=== PATIENT | male | born 1950 | race Caucasian/White ===

== ENCOUNTER → 2016-12-16 | Outpatient (CLI) | payer MEDICARE, BC ==
[~2016-12-16] MED LIST: /METO25TAB PO; ACET120S PO; ASPI1TAB PO; BACT800T5 PO; BISAC5TA PO; CARAFATE PO; COUM1TAB17 PO; COUM2.5T17 PO; CYMB1CAP4 PO; DICY10CA2 PO; FLEXERIL PO; ISOVUE-370 76% 100ML VIAL (Q9967) As Ordered ONE; METO25TAB PO; MULT1TAB8 PO; OMEP20CA3 PO; PERC5TAB12 PO; PERCOCET PO; SENO8.6T9 PO; SUCRPOW PO; TYLE325T5 PO; TYLENOL W/CODEINE PO
--- NOTE | 2016-12-16 16:32 | REP ---
CT of the chest with IV contrast for evaluation of the ascending thoracic aorta: Comparison is 10/07/2012. The ascending thoracic aorta is dilated measuring up to 4.7 cm at the level of the pulmonary artery trunk and right central pulmonary artery. On the comparison study at this same level the ascending thoracic aorta measures 4.6 centimeters. The aortic isthmus measures 3.1 cm in diameter and the proximal descending thoracic aorta measures 2.8 cm in diameter. At the diaphragmatic hiatus the distal descending thoracic aorta measures two point centimeters in diameter. There is no evidence of dissection or intimal flap. The lung rosado are clear except for chronic parenchymal scarring in the deep sulci of both right and left lower lobes, unchanged. There is no mediastinal or hilar adenopathy. There is no axillary adenopathy. Cardiac size is normal. There is no pericardial effusion. The visualized upper abdominal contents again demonstrate enhancing hyperdense lesions in the liver and spleen, unchanged in size, compatible with hemangiomas. Impression: The ascending thoracic aorta is dilated. The remainder of the thoracic aorta is normal size. 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 There is focal chronic parenchymal scarring in the posterior sulcus of the right lung and posterior sulcus of the left lung, unchanged. Signed by Valdemar Root MD 12/16/2016 04:24 P
== END ==
LOC: M RAD 09:44
PROVIDERS: ATTEND Internal Medicine Cardiovascular Disease
DX: I71.4 Abdominal aortic aneurysm, without rupture (principal); D18.09 Hemangioma of other sites
CPT/HCPCS: 71275; Q9967

== ENCOUNTER 2018-12-28 14:12 | Emergency (ER) | payer MEDICARE, BC ==
[~2018-12-28] VITALS: Ht 177.8 cm; Wt 74.9 kg
[~2018-12-28 14:12] MED LIST changes: -/METO25TAB PO; +ASPI81TA26 PO; -ISOVUE-370 76% 100ML VIAL (Q9967) As Ordered ONE; +METO1TAB63 PO; +METO1TAB87 PO; -METO25TAB PO; +OXYC1TAB23 PO; -PERCOCET PO
[2018-12-28 15:16] LABS: BASO % 0.4 % (0.0-1.0); EOS # 0.1 10^3/uL (0.0-0.50); EOS % 1.4 % (0.0-3.0); HEMATOCRIT 41.5 % (42.0-52.0); HEMOGLOBIN 14.5 g/dl (13.5-17.5); LYMPH # 0.8 10^3/uL (1.5-4.5); LYMPH % 11.7 % (24.0-44.0); MEAN CORPUSCULAR HEMOGLOBIN 32.8 pg (27.0-33.0); MEAN CORPUSCULAR HGB CONC 34.9 g/dl (32.0-36.5); MEAN CORPUSCULAR VOLUME 93.9 fl (80.0-96.0); MONO # 0.6 10^3/uL (0.0-0.8); MONO % 8.6 % (0.0-5.0); NEUTROPHILS # 5.4 10^3/uL (1.8-7.7); NEUTROPHILS % 77.6 % (36.0-66.0); PLATELET COUNT, AUTOMATED 170 10^3/uL (150-450); RED BLOOD COUNT 4.42 10^6/uL (4.30-6.10); WHITE BLOOD COUNT 6.9 10^3/uL (4.0-10.0)
--- NOTE | 2018-12-28 15:25 | REP ---
REASON: Chest pain. COMPARISON: 05/01/2015 FINDINGS: The technique utilized in obtaining the radiograph has magnified the cardiac silhouette and accentuated the interstitial markings. The superior mediastinal structures are midline. The cardiac silhouette is unremarkable in size, shape, and position. The diaphragmatic surfaces of the lungs are regular, and the costophrenic angles are clear. The pulmonary rosado are clear. The imaged osseous structures are intact. IMPRESSION: There is no acute cardiopulmonary disease. Electronically Signed by Seth Lynn DO 12/29/2018 03:20 P
[2018-12-28 15:48] LABS: BLOOD UREA NITROGEN 13 MG/DL (7-18); CALCIUM LEVEL 8.9 MG/DL (8.8-10.2); CARBON DIOXIDE LEVEL 28 MEQ/L (21-32); CHLORIDE LEVEL 108 MEQ/L (98-107); CK-MB VALUE MASS < 1.0 NG/ML (<3.6); CPK CREATINE PHOSPHOKINASE 41 U/L (39-308); CREATININE FOR GFR 1.07 MG/DL (0.70-1.30); GLOMERULAR FILTRATION RATE > 60.0 (>49); GLUCOSE, FASTING 88 MG/DL (70-100); MB/CK RELATIVE INDEX 2.44 (< OR =4); POTASSIUM SERUM 4.2 MEQ/L (3.5-5.1); SODIUM LEVEL 143 MEQ/L (136-145); TROPONIN I < 0.02 NG/ML (< 0.10)
[2018-12-28 16:46] VITALS: BP 130/79
--- NOTE | 2018-12-28 18:04 | ECGEPIP ---
[facility] - ED Test Date: 2018-12-28 Pat Name: JESSICA LASSITER Department: Room: - Gender: Male Per Diem Clerk: ct : 1950 Requested By: Shania Bruce Order Number: [id number] Reading MD: Shania Bruce Measurements Intervals [place] Rate: 82 P: 53 TX: 197 QRS: -65 QRSD: 157 T: 25 QT: 396 QTc: 463 Interpretive Statements SINUS RHYTHM WITH FREQUENT VENTRICULAR PREMATURE COMPLEXES RIGHT BUNDLE BRANCH BLOCK LEFT ANTERIOR FASCICULAR BLOCK INCREASED RATE/ECTOPY 05/01/15 Electronically Signed on 12-28-2018 18:04:39 EDT by Shania Bruce
== END 2018-12-28 16:48 | disposition home or self-care (01) ==
LOC: M ED 14:12
DX: R09.1 Pleurisy (principal); E11.9 Type 2 diabetes mellitus without complications; I10 Essential (primary) hypertension; I71.9 Aortic aneurysm of unspecified site, without rupture; E78.5 Hyperlipidemia, unspecified; Z88.0 Allergy status to penicillin; Z88.5 Allergy status to narcotic agent; Z79.82 Long term (current) use of aspirin

== ENCOUNTER → 2019-06-12 | Outpatient (REF) | payer MEDICARE, BC ==
[2019-06-12 15:33] LABS: INR 1.33; PROTHROMBIN TIME 16.2 SECONDS (11.8-14.0)
== END ==
LOC: M SHH 14:01
PROVIDERS: ATTEND Internal Medicine Cardiovascular Disease
DX: I48.91 Unspecified atrial fibrillation (principal)

== ENCOUNTER → 2019-06-14 | Outpatient (REF) | payer MEDICARE, BC ==
[2019-06-14 13:01] LABS: INR 1.15; PROTHROMBIN TIME 14.4 SECONDS (11.8-14.0)
== END ==
LOC: M SHH 12:16
PROVIDERS: ATTEND Internal Medicine Cardiovascular Disease
DX: I48.91 Unspecified atrial fibrillation (principal)

== ENCOUNTER → 2019-06-16 | Outpatient (REF) | payer MEDICARE, BC ==
[2019-06-16 12:04] LABS: INR 1.2
== END ==
LOC: M SHH 11:05
PROVIDERS: ATTEND Internal Medicine Cardiovascular Disease
DX: I48.91 Unspecified atrial fibrillation (principal)

== ENCOUNTER → 2019-06-27 | Outpatient (REF) | payer MEDICARE, BC ==
[2019-06-27 12:09] LABS: INR 3.5; PROTHROMBIN TIME 35.1 SECONDS (11.8-14.0)
== END ==
LOC: M SHH 11:36
PROVIDERS: ATTEND Internal Medicine Cardiovascular Disease
DX: I48.91 Unspecified atrial fibrillation (principal)

== ENCOUNTER → 2019-06-30 | Outpatient (REF) | payer MEDICARE, BC ==
[2019-06-30 14:29] LABS: INR 3.3; PROTHROMBIN TIME 33.5 SECONDS (11.8-14.0)
== END ==
LOC: M SHH 13:54
PROVIDERS: ATTEND Internal Medicine Cardiovascular Disease
DX: I48.91 Unspecified atrial fibrillation (principal)

== ENCOUNTER → 2019-07-04 | Outpatient (REF) | payer MEDICARE, BC ==
[2019-07-04 14:51] LABS: INR 2.22; PROTHROMBIN TIME 24.4 SECONDS (11.8-14.0)
== END ==
LOC: M SHH 14:27
PROVIDERS: ATTEND Internal Medicine Cardiovascular Disease
DX: I48.91 Unspecified atrial fibrillation (principal)

== ENCOUNTER → 2019-07-07 | Outpatient (REF) | payer MEDICARE, BC ==
[2019-07-07 14:22] LABS: INR 1.99; PROTHROMBIN TIME 22.4 SECONDS (11.8-14.0)
== END ==
LOC: M SHH 13:33
PROVIDERS: ATTEND Internal Medicine Cardiovascular Disease
DX: I48.91 Unspecified atrial fibrillation (principal)

== ENCOUNTER → 2019-07-11 | Outpatient (REF) | payer MEDICARE, BC ==
[2019-07-11 12:02] LABS: INR 2.33; PROTHROMBIN TIME 25.4 SECONDS (11.8-14.0)
== END ==
LOC: M SHH 11:34
PROVIDERS: ATTEND Internal Medicine Cardiovascular Disease
DX: I48.91 Unspecified atrial fibrillation (principal)

== ENCOUNTER → 2019-07-15 | Outpatient (REF) | payer MEDICARE, BC ==
[2019-07-15 11:54] LABS: INR 2.18; PROTHROMBIN TIME 24.1 SECONDS (11.8-14.0)
== END ==
LOC: M SHH 11:03
PROVIDERS: ATTEND Internal Medicine Cardiovascular Disease
DX: I48.91 Unspecified atrial fibrillation (principal)

== ENCOUNTER 2019-12-17 06:48 | Emergency (ER) | payer MEDICARE, BC ==
[~2019-12-17 06:48] MED LIST changes: -ACET120S PO; +ACET125EL PO
[2020-02-01 13:37] LABS: INR 1.84; PARTIAL THROMBOPLASTIN TIME 39.3 SECONDS (25.0-38.4); PROTHROMBIN TIME 21.7 SECONDS (11.8-14.0)
[2020-02-01 17:59] LABS: BASO % 0.6 % (0.0-1.0); EOS # 0.1 10^3/uL (0.0-0.5); EOS % 2.3 % (0.0-3.0); HEMATOCRIT 41.4 % (42.0-52.0); HEMOGLOBIN 14.1 g/dl (13.5-17.5); LYMPH # 1.1 10^3/uL (1.5-5.0); LYMPH % 21.1 % (24.0-44.0); MEAN CORPUSCULAR HEMOGLOBIN 32.6 pg (27.0-33.0); MEAN CORPUSCULAR HGB CONC 34.1 g/dl (32.0-36.5); MEAN CORPUSCULAR VOLUME 95.6 fl (80.0-96.0); MONO # 0.6 10^3/uL (0.0-0.8); MONO % 10.9 % (0.0-5.0); NEUTROPHILS # 3.4 10^3/uL (1.5-8.5); NEUTROPHILS % 64.5 % (36.0-66.0); PLATELET COUNT, AUTOMATED 157 10^3/uL (150-450); RED BLOOD COUNT 4.33 10^6/uL (4.30-6.10); WHITE BLOOD COUNT 5.3 10^3/uL (4.0-10.0)
[2020-02-28 16:12] LABS: CALCIUM LEVEL 9.2 MG/DL (8.8-10.2); CREATININE FOR GFR 1.31 MG/DL (0.70-1.30); GLOMERULAR FILTRATION RATE 57.6 (>49); POTASSIUM SERUM 4.1 MEQ/L (3.5-5.1)
== END 2019-12-17 09:45 | disposition home or self-care (01) ==
LOC: M ED 06:48
DX: K64.8 Other hemorrhoids (principal); I51.9 Heart disease, unspecified; I10 Essential (primary) hypertension; K58.9 Irritable bowel syndrome, unspecified; H40.9 Unspecified glaucoma; I49.9 Cardiac arrhythmia, unspecified; Z87.19 Personal history of other diseases of the digestive system; Z86.010 Personal history of colon polyps; Z85.038 Personal history of other malignant neoplasm of large intestine; Z86.718 Personal history of other venous thrombosis and embolism; Z95.0 Presence of cardiac pacemaker; Z86.79 Personal history of other diseases of the circulatory system; Z79.01 Long term (current) use of anticoagulants; Z79.899 Other long term (current) drug therapy; Z88.0 Allergy status to penicillin

== ENCOUNTER 2020-05-06 20:19 | Emergency (ER) | payer MEDICARE, BC ==
[~2020-05-06] VITALS: Ht 177.8 cm; Wt 73.3 kg
[2020-05-06] MEDS ORDERED: WARF-20 (20:31)
[2020-05-06] MEDS ORDERED: SERT25TA21 (20:31)
[2020-05-06] MEDS ORDERED: METO1TAB87 (20:31)
[2020-05-06] MEDS ORDERED: DOK1CAP7 (20:31)
[2020-05-06] MEDS ORDERED: WARF4TAB51 (20:31)
[2020-05-06 21:56] LABS: HEMATOCRIT 39.5 % (42.0-52.0); HEMOGLOBIN 13.3 g/dl (13.5-17.5); MEAN CORPUSCULAR HEMOGLOBIN 31.3 pg (27.0-33.0); MEAN CORPUSCULAR HGB CONC 33.7 g/dl (32.0-36.5); MEAN CORPUSCULAR VOLUME 92.9 fl (80.0-96.0); PLATELET COUNT, AUTOMATED 166 10^3/uL (150-450); RED BLOOD COUNT 4.25 10^6/uL (4.30-6.10); WHITE BLOOD COUNT 5.3 10^3/uL (4.0-10.0)
[2020-05-06 22:09] LABS: INR 1.92; PROTHROMBIN TIME 22.4 SECONDS (12.5-14.3)
[2020-05-06 23:10] VITALS: BP 114/72
== END 2020-05-06 23:11 | disposition home or self-care (01) ==
LOC: M ED 20:19
DX: K64.8 Other hemorrhoids (principal); K64.9 Unspecified hemorrhoids; I48.91 Unspecified atrial fibrillation; K57.92 Diverticulitis of intestine, part unspecified, without perforation or abscess without bleeding; Z86.718 Personal history of other venous thrombosis and embolism; Z79.01 Long term (current) use of anticoagulants; Z79.899 Other long term (current) drug therapy; Z88.0 Allergy status to penicillin; Z88.5 Allergy status to narcotic agent

== ENCOUNTER → 2020-06-08 | Outpatient (CLI) | payer MEDICARE, BC ==
[~2020-06-08] MED LIST changes: +DOK1CAP7; +METO1TAB87; +METO37.5 PO; +SERT25TA21; +VITMTA PO; +WARF-20; +WARF4TAB51; +WARF4TAB51 PO
== END ==
LOC: M LABSMTC 09:30
PROVIDERS: ATTEND Anesthesiology
DX: Z01.812 Encounter for preprocedural laboratory examination (principal); Z20.822 Contact with and (suspected) exposure to COVID-19

== ENCOUNTER → 2020-09-07 | Outpatient (CLI) | payer MEDICARE, BC ==
[~2020-09-07] MED LIST changes: -DOK1CAP7; +DOK1CAP7 PO
== END ==
LOC: M LABSMTC 10:08
PROVIDERS: ATTEND Anesthesiology
DX: Z01.812 Encounter for preprocedural laboratory examination (principal); Z20.822 Contact with and (suspected) exposure to COVID-19

== ENCOUNTER 2020-09-12 11:10 | Day surgery (SDC) | payer MEDICARE, BC ==
[~2020-09-12] VITALS: Ht 180.3 cm; Wt 72.9 kg
[~2020-09-12 11:10] MED LIST changes: +LIDOCAINE 2% 100MG/5ML SDV (FOR ANES.) As Ordered ONE; +NS 1,000 ML IV ONE; +propofoL 200 MG/20 ML VIAL As Ordered ONE
[2020-09-12] MEDS ORDERED: ceFAZolin SOD 1 GM in D5W MINI-BAG PLUS 50 ML IV ONE (12:00)
--- NOTE | 2020-09-12 13:51 | ROOR ---
Patient Name: Nguyễn Hernandez Procedure Date: 09/12/2020 1:19 PM Date of : 1950 Age: 69 Room: [facility] Gender: Male Note Status: Finalized Procedure: Colonoscopy Indications: Rectal bleeding Providers: Timothy Das Jr, MD Referring MD: KALEY GAR DO Requesting Provider: Medicines: Propofol per Anesthesia Complications: No immediate complications. Procedure: Pre-Anesthesia Assessment: - Prior to the procedure, a History and Physical was performed, and patient medications and allergies were reviewed. The patient is competent. The risks and benefits of the procedure and the sedation options and risks were discussed with the patient. All questions were answered and informed consent was obtained. Patient identification and proposed procedure were verified by the physician and the nurse in the pre-procedure area and in the procedure room. Mental Status Examination: alert and oriented. Airway Examination: normal oropharyngeal airway and neck mobility. Respiratory Examination: clear to auscultation. CV Examination: normal. ASA Grade Assessment: II - A patient with mild systemic disease. After reviewing the risks and benefits, the patient was deemed in satisfactory condition to undergo the procedure. The anesthesia plan was to use moderate sedation / analgesia (conscious sedation). Immediately prior to administration of medications, the patient was re-assessed for adequacy to receive sedatives. The heart rate, respiratory rate, oxygen saturations, blood pressure, adequacy of pulmonary ventilation, and response to care were monitored throughout the procedure. The physical status of the patient was re-assessed after the procedure. The Colonoscope was introduced through the anus and advanced to the cecum, identified by appendiceal orifice and ileocecal valve. The colonoscopy was performed without difficulty. The patient tolerated the procedure well. The quality of the bowel preparation was adequate. Findings: Five sessile polyps were found in the sigmoid colon, descending colon and ascending colon. The polyps were small in size. These polyps were removed with a hot snare. Resection was complete, but the polyp tissue was only partially retrieved. A medium polyp was found in the rectum. The polyp was pedunculated. The polyp was removed with a hot snare. Resection and retrieval were complete. Impression: - Five small polyps in the sigmoid colon, in the descending colon and in the ascending colon, removed with a hot snare. Complete resection. Partial retrieval. - One medium polyp in the rectum, removed with a hot snare. Resected and retrieved. Recommendation: - Discharge patient to home (ambulatory). - Repeat colonoscopy date to be determined after pending pathology results are reviewed for surveillance based on pathology results. Procedure Code(s): --- Professional --- 08981, Colonoscopy, flexible; with removal of tumor(s), polyp(s), or other lesion(s) by snare technique Diagnosis Code(s): --- Professional --- K63.5, Polyp of colon K62.1, Rectal polyp K62.5, Hemorrhage of anus and rectum CPT copyright 2019 [employer]. All rights reserved. The codes documented in this report are preliminary and upon jewelry estimator review may be revised to meet current compliance requirements. Timothy Das MD Timothy Das Jr, MD 09/12/2020 1:50:44 PM Electronically signed by Timothy Das Jr, MD Number of Addenda: 0 Note Initiated On: 09/12/2020 1:19 PM Estimated Blood Loss: Estimated blood loss: none.
[2020-09-12 14:25] VITALS: BP 101/74
== END 2020-09-12 14:40 | disposition home or self-care (01) ==
LOC: M OPP 11:10
PROVIDERS: ATTEND Surgery
DX: K62.5 Hemorrhage of anus and rectum (principal); D12.6 Benign neoplasm of colon, unspecified; I10 Essential (primary) hypertension; M19.90 Unspecified osteoarthritis, unspecified site; F41.9 Anxiety disorder, unspecified; F32.9 Major depressive disorder, single episode, unspecified; J44.9 Chronic obstructive pulmonary disease, unspecified; F17.220 Nicotine dependence, chewing tobacco, uncomplicated; Z95.0 Presence of cardiac pacemaker; Z86.718 Personal history of other venous thrombosis and embolism; Z96.643 Presence of artificial hip joint, bilateral; Z96.651 Presence of right artificial knee joint; Z88.0 Allergy status to penicillin; Z88.5 Allergy status to narcotic agent; Z79.01 Long term (current) use of anticoagulants; Z79.899 Other long term (current) drug therapy
CPT/HCPCS: 45385; 88305; J0690

== ENCOUNTER → 2021-04-07 | Outpatient (CLI) | payer MEDICARE, BC ==
[~2021-04-07] MED LIST changes: +DOK1CAP4 PO; -DOK1CAP7 PO; -LIDOCAINE 2% 100MG/5ML SDV (FOR ANES.) As Ordered ONE; -NS 1,000 ML IV ONE; -propofoL 200 MG/20 ML VIAL As Ordered ONE
--- NOTE | 2021-04-07 17:29 | REP ---
INDICATION: RT LEG PAIN ? DVT COMPARISON: None. TECHNIQUE: Mccoy scale and color Doppler evaluation using linear high frequency transducer. FINDINGS: Ultrasound examination of the right lower extremity deep venous structures from the common femoral vein through the calf/ankle to include the peroneal, and tibial veins demonstrates normal compressibility flow and wave patterns in response to respiration and augmentation. There is no evidence for deep venous thrombosis. IMPRESSION: No evidence for deep venous thrombosis. <Electronically signed by Tariq Last > 04/07/21 [id number]
== END ==
LOC: M RAD 16:30
PROVIDERS: ATTEND Physician Assistant Surgical
DX: M79.604 Pain in right leg (principal)

== ENCOUNTER → 2021-04-09 | Outpatient (CLI) | payer MEDICARE, BC ==
[~2021-04-09] MED LIST changes: +ISOVUE-370 76% 100ML VIAL As Ordered ONE
[2021-04-09 12:58] LABS: BLOOD UREA NITROGEN 23 MG/DL (7-18); CREATININE FOR GFR 1.12 MG/DL (0.70-1.30); GLOMERULAR FILTRATION RATE > 60.0 (>42)
--- NOTE | 2021-04-09 13:33 | REP ---
INDICATION: RT KNEE PAIN PT HAVING LABS FIRST/HOLD PT. COMPARISON: None. TECHNIQUE: 3 x 3 mm increments using helical technique and reconstructed in sagittal and coronal planes after the intravenous administration of 100 cc Isovue 370 FINDINGS: The secondary to TKR there is significant beam hardening artifact obscuring the osseous detail on all images. Even with MARTINA a fracture could be obscured. There is no evidence of abnormal soft tissue enhancement is seen in the soft tissues not affected by the beam hardening artifact. There is no evidence of a gross joint effusion. IMPRESSION: Findings and limitations as described above. <Electronically signed by Seth Lynn > 04/09/21 1222
== END ==
LOC: M RAD 09:22
PROVIDERS: ATTEND Physician Assistant
DX: M25.561 Pain in right knee (principal); Z96.651 Presence of right artificial knee joint; R93.6 Abnormal findings on diagnostic imaging of limbs
CPT/HCPCS: 73701; 82565; 84520; Q9967

== ENCOUNTER → 2021-05-08 | Outpatient (CLI) | payer MEDICARE, BC ==
[~2021-05-08] MED LIST changes: -ISOVUE-370 76% 100ML VIAL As Ordered ONE
--- NOTE | 2021-05-10 21:27 | REPVR ---
PROCEDURE INFORMATION: Exam: CT Lumbar Spine Without Contrast Exam date and time: 05/08/2021 5:29 PM Age: 70 years old Clinical indication: Other: Decreased hip flexion; Additional info: Artifical hip joint ? stenosis / decreased hip fle TECHNIQUE: Imaging protocol: Computed tomography images of the lumbar spine without contrast. Radiation optimization: All CT scans at this facility use at least one of these dose optimization techniques: automated exposure control; mA and/or kV adjustment per patient size (includes targeted exams where dose is matched to clinical indication); or iterative reconstruction. COMPARISON: No relevant prior studies available. FINDINGS: Vertebrae: Chronic mild compression fracture of the superior anterior endplate of L1. Remaining lumbar vertebral body heights are intact. Dextrocurvature to the lumbar spine. Lumbar lordosis is preserved. Multilevel facet arthropathy. No acute lumbar spine fracture. No measurable spondylolisthesis. Discs/Spinal canal/Neural foramina: Multilevel degenerative changes with intervertebral disc height loss and osteophyte formation. Kidneys and ureters: Multiple small nonobstructive calculi in both kidneys. No hydronephrosis. Soft tissues: Unremarkable. IMPRESSION: 1. No acute findings in the lumbar spine. 2. Other chronic findings, as above. Electronically signed by: Petey Jordan On 05/10/2021 21:27:34 PM
--- NOTE | 2021-05-11 21:03 | REP ---
INDICATION: ARTIFICAL HIP JOINT ? STENOSIS / DECREASED HIP FLE. COMPARISON: None. TECHNIQUE: Axial noncontrast images through the right hip with coronal and sagittal reformations. Metallic artifact reduction technique was obtained. FINDINGS: The patient is noted to be status post total hip replacement. The orthopedic hardware appears to be in satisfactory stable position. Adjacent surrounding posttraumatic arthritic degenerative changes including small amounts of heterotopic ossification and possible loose bodies are suggested. There is no obvious acute fracture, but evaluation despite metallic artifact reduction technique is severely limited for the possibility of subtle acute injury. A fluid collection anterior to the hip joint as well as suspicion for hematoma/collection/abscess involving the visualized portion of the right iliacus muscle is suspected (series 304; images 1-15). IMPRESSION: 1. Suspicion for hematoma versus forming abscess in the right iliacus muscle incompletely evaluated. Correlation is required. 2. As above. <Electronically signed by Tariq Last > 05/11/21 [id number]
== END ==
LOC: M RAD 17:04
PROVIDERS: ATTEND Physician Assistant Surgical
DX: Z96.641 Presence of right artificial hip joint (principal); N20.0 Calculus of kidney; M51.36 Other intervertebral disc degeneration, lumbar region; M48.56XD Collapsed vertebra, not elsewhere classified, lumbar region, subsequent encounter for fracture with routine healing

== ENCOUNTER → 2021-05-15 | Outpatient (CLI) | payer MEDICARE ==
[2021-05-15 12:43] LABS: BASO % 0.4 % (0.0-1.0); EOS # 0.1 10^3/uL (0.0-0.5); EOS % 1.5 % (0.0-3.0); HEMATOCRIT 38.4 % (42.0-52.0); HEMOGLOBIN 12.8 g/dl (13.5-17.5); LYMPH % 14.1 % (24.0-44.0); MEAN CORPUSCULAR HGB CONC 33.3 g/dl (32.0-36.5); MONO # 0.7 10^3/uL (0.0-0.8); MONO % 10.7 % (2.0-8.0); NEUTROPHILS # 4.9 10^3/uL (1.5-8.5); NEUTROPHILS % 72.9 % (36.0-66.0); PLATELET COUNT, AUTOMATED 239 10^3/uL (150-450); RED BLOOD COUNT 3.88 10^6/uL (4.30-6.10); WHITE BLOOD COUNT 6.8 10^3/uL (4.0-10.0)
[2021-05-15 13:12] LABS: ERYTHROCYTE SEDIMENTATION RATE 13 mm/hr (0-20)
== END ==
LOC: M LAB 12:04
PROVIDERS: ATTEND Physician Assistant Surgical
DX: M25.551 Pain in right hip (principal)

== ENCOUNTER → 2021-05-15 | Outpatient (CLI) | payer MEDICARE ==
--- NOTE | 2021-05-15 12:33 | REP ---
INDICATION: RT HIP PAIN F/U ABN CT 05/08 COMPARE FLUID COLLECT COMPARISON: None TECHNIQUE: Directed grayscale and color B-mode ultrasound examination using curved array transducer. FINDINGS: Ultrasound examination over the anterior right hip demonstrates a 4.3 x 1.4 x 2.8 cm complex fluid collection deep to the overlying musculature and consistent with hematoma given the patient's history of trauma. No obvious internal gas identified to suggest abscess at this time. Ultrasound examination of the right iliacus muscle demonstrates a similar complex fluid collection measuring 9.1 x 3.2 x 6.0 cm again likely representing hematoma. No obvious internal gas identified to suggest abscess at this time. IMPRESSION: 1. Complex collections described above most compatible with hematomas given the patient's history of trauma. Abscess cannot definitively be excluded although there is no internal gas to definitively suggest abscess by ultrasound. <Electronically signed by Tariq Last > 05/15/21 [id number]
== END ==
LOC: M RAD 11:28
PROVIDERS: ATTEND Physician Assistant Surgical
DX: M25.551 Pain in right hip (principal); M79.89 Other specified soft tissue disorders

== ENCOUNTER 2021-06-01 23:13 | Inpatient (IN) | payer MEDICARE ==
[~2021-06-01] VITALS: Ht 177.8 cm; Wt 58.1 kg
[2021-06-01] MEDS ORDERED: TIZA2CAP PO (23:35)
[2021-06-01] MEDS ORDERED: HYDR-3713 PO (23:35)
[2021-06-01] MEDS ORDERED: METO50TA7 PO (23:35)
[2021-06-01] MEDS ORDERED: HYDR12CA PO (23:35)
[2021-06-01] MEDS ORDERED: BACTDSTA (23:35)
[2021-06-02] VITALS (11 sets, daily range): BP systolic 103–117; BP diastolic 6–80
[2021-06-02] MEDS ORDERED: NS 1,000 ML IV ONE (00:25)
[2021-06-02 00:38] LABS: BASO % 0.2 % (0.0-1.0); EOS % 0.1 % (0.0-3.0); HEMATOCRIT 35.5 % (42.0-52.0); HEMOGLOBIN 12.2 g/dl (13.5-17.5); LYMPH # 0.5 10^3/uL (1.5-5.0); LYMPH % 5.4 % (24.0-44.0); MEAN CORPUSCULAR HEMOGLOBIN 32.9 pg (27.0-33.0); MEAN CORPUSCULAR HGB CONC 34.4 g/dl (32.0-36.5); MEAN CORPUSCULAR VOLUME 95.7 fl (80.0-96.0); MONO # 1.3 10^3/uL (0.0-0.8); MONO % 14.2 % (2.0-8.0); NEUTROPHILS # 7.1 10^3/uL (1.5-8.5); NEUTROPHILS % 79.4 % (36.0-66.0); PLATELET COUNT, AUTOMATED 285 10^3/uL (150-450); RED BLOOD COUNT 3.71 10^6/uL (4.30-6.10)
[2021-06-02 00:42] LABS: PROTHROMBIN TIME 53.5 SECONDS (12.7-14.5)
[2021-06-02 00:44] LABS: PARTIAL THROMBOPLASTIN TIME 104.1 SECONDS (25.9-37.0)
[2021-06-02 00:48] LABS: INR 6.01
[2021-06-02 00:50] LABS: ALBUMIN 2.9 GM/DL (3.2-5.2); BILIRUBIN,DIRECT 0.7 MG/DL (0.0-0.2); BILIRUBIN,TOTAL 1.9 MG/DL (0.2-1.0); C REACTIVE PROTEIN QUANTITATIV 12.1 MG/DL (0.00-0.30); CALCIUM LEVEL 8.6 MG/DL (8.8-10.2); CREATININE FOR GFR 1.28 MG/DL (0.70-1.30); POTASSIUM SERUM 3.5 MEQ/L (3.5-5.1); TOTAL PROTEIN 5.9 GM/DL (6.4-8.2)
[2021-06-02 00:53] LABS: CK-MB VALUE MASS < 1.0 NG/ML (<3.6); CPK CREATINE PHOSPHOKINASE 23 U/L (39-308); MB/CK RELATIVE INDEX 4.35 (< OR =4)
[2021-06-02] MEDS ORDERED: ISOVUE-370 76% 100ML VIAL As Ordered ONE (01:34)
[2021-06-02] MEDS ORDERED: HOME MED LIST COMPLETE! XX SCH (02:00)
[2021-06-02] MEDS ORDERED: PHYTONADIONE 5 MG TAB PO ONE (07:20)
[2021-06-02] MEDS: NORCO, ANEXSIA 5/325MG TABLET (HYDROcodone/ACETAMINOPHEN) PO PRN (15:49)
[2021-06-02 18:58] LABS: INR 2.49; PROTHROMBIN TIME 27.3 SECONDS (12.7-14.5)
[2021-06-02 18:59] LABS: PARTIAL THROMBOPLASTIN TIME 67.9 SECONDS (25.9-37.0)
[2021-06-03 05:40] VITALS: BP 120/81
[2021-06-03 06:20] LABS: BASO % 0.2 % (0.0-1.0); EOS # 0.1 10^3/uL (0.0-0.5); EOS % 1.1 % (0.0-3.0); HEMATOCRIT 28.9 % (42.0-52.0); LYMPH # 0.5 10^3/uL (1.5-5.0); LYMPH % 8.9 % (24.0-44.0); MEAN CORPUSCULAR HEMOGLOBIN 33.6 pg (27.0-33.0); MEAN CORPUSCULAR HGB CONC 34.9 g/dl (32.0-36.5); MONO # 0.9 10^3/uL (0.0-0.8); MONO % 15.7 % (2.0-8.0); NEUTROPHILS % 73.6 % (36.0-66.0); PLATELET COUNT, AUTOMATED 216 10^3/uL (150-450); RED BLOOD COUNT 3.01 10^6/uL (4.30-6.10); WHITE BLOOD COUNT 5.5 10^3/uL (4.0-10.0)
[2021-06-03 06:22] LABS: HEMOGLOBIN 10.1 g/dl (13.5-17.5)
[2021-06-03 06:26] LABS: INR 1.51; PROTHROMBIN TIME 18.6 SECONDS (12.7-14.5)
[2021-06-03 06:51] LABS: BLOOD UREA NITROGEN 20 MG/DL (7-18); CALCIUM LEVEL 8.6 MG/DL (8.8-10.2); CARBON DIOXIDE LEVEL 26 MEQ/L (21-32); CHLORIDE LEVEL 107 MEQ/L (98-107); CREATININE FOR GFR 0.69 MG/DL (0.70-1.30); GLOMERULAR FILTRATION RATE > 60.0 (>42); GLUCOSE, FASTING 105 MG/DL (70-100); POTASSIUM SERUM 3.2 MEQ/L (3.5-5.1); SODIUM LEVEL 140 MEQ/L (136-145)
[2021-06-03] MEDS ORDERED: POTASSIUM CHLORIDE 10MEQ SR TABLET PO ONE (08:10)
[2021-06-03] MEDS: NORCO, ANEXSIA 5/325MG TABLET (HYDROcodone/ACETAMINOPHEN) PO PRN ×2 (10:27→21:31)
[2021-06-03] MEDS: METOPROLOL TART 50 MG TAB PO SCH ×2 (10:28→21:30)
[2021-06-03 14:00] VITALS: BP 114/75
[2021-06-03 22:00] VITALS: BP 113/77
[2021-06-04 06:00] VITALS: BP 107/74
[2021-06-04 07:05] LABS: BASO % 0.4 % (0.0-1.0); EOS # 0.1 10^3/uL (0.0-0.5); EOS % 1.3 % (0.0-3.0); HEMATOCRIT 31.3 % (42.0-52.0); HEMOGLOBIN 10.7 g/dl (13.5-17.5); LYMPH # 0.6 10^3/uL (1.5-5.0); LYMPH % 11.7 % (24.0-44.0); MEAN CORPUSCULAR HGB CONC 34.2 g/dl (32.0-36.5); MEAN CORPUSCULAR VOLUME 96.6 fl (80.0-96.0); MONO # 0.8 10^3/uL (0.0-0.8); MONO % 14.2 % (2.0-8.0); NEUTROPHILS # 3.8 10^3/uL (1.5-8.5); NEUTROPHILS % 71.8 % (36.0-66.0); PLATELET COUNT, AUTOMATED 232 10^3/uL (150-450); RED BLOOD COUNT 3.24 10^6/uL (4.30-6.10); WHITE BLOOD COUNT 5.3 10^3/uL (4.0-10.0)
[2021-06-04 07:18] LABS: INR 1.16; PROTHROMBIN TIME 15.2 SECONDS (12.7-14.5)
[2021-06-04 07:26] LABS: BLOOD UREA NITROGEN 17 MG/DL (7-18); CALCIUM LEVEL 8.7 MG/DL (8.8-10.2); CARBON DIOXIDE LEVEL 28 MEQ/L (21-32); CHLORIDE LEVEL 106 MEQ/L (98-107); CREATININE FOR GFR 0.75 MG/DL (0.70-1.30); GLOMERULAR FILTRATION RATE > 60.0 (>42); GLUCOSE, FASTING 103 MG/DL (70-100); POTASSIUM SERUM 3.4 MEQ/L (3.5-5.1); SODIUM LEVEL 140 MEQ/L (136-145)
[2021-06-04] MEDS ORDERED: POTASSIUM CHLORIDE 10MEQ SR TABLET PO ONE (10:15)
[2021-06-04] MEDS: NORCO, ANEXSIA 5/325MG TABLET (HYDROcodone/ACETAMINOPHEN) PO PRN ×2 (10:45→20:30)
[2021-06-04] MEDS: METOPROLOL TART 50 MG TAB PO SCH ×2 (10:45→20:31)
[2021-06-04 14:00] VITALS: BP 102/76
[2021-06-04 22:00] VITALS: BP 114/73
[2021-06-05 06:00] VITALS: BP 109/68
[2021-06-05 06:36] LABS: BASO % 0.4 % (0.0-1.0); EOS # 0.1 10^3/uL (0.0-0.5); EOS % 1.6 % (0.0-3.0); HEMATOCRIT 30.8 % (42.0-52.0); HEMOGLOBIN 10.6 g/dl (13.5-17.5); LYMPH # 0.8 10^3/uL (1.5-5.0); LYMPH % 14.1 % (24.0-44.0); MEAN CORPUSCULAR HGB CONC 34.4 g/dl (32.0-36.5); MONO # 0.7 10^3/uL (0.0-0.8); MONO % 13.3 % (2.0-8.0); NEUTROPHILS # 3.9 10^3/uL (1.5-8.5); NEUTROPHILS % 70.2 % (36.0-66.0); PLATELET COUNT, AUTOMATED 241 10^3/uL (150-450); RED BLOOD COUNT 3.21 10^6/uL (4.30-6.10); WHITE BLOOD COUNT 5.6 10^3/uL (4.0-10.0)
[2021-06-05 06:59] LABS: INR 1.16; PROTHROMBIN TIME 15.2 SECONDS (12.7-14.5)
[2021-06-05 07:04] LABS: BLOOD UREA NITROGEN 19 MG/DL (7-18); CALCIUM LEVEL 8.6 MG/DL (8.8-10.2); CARBON DIOXIDE LEVEL 27 MEQ/L (21-32); CHLORIDE LEVEL 108 MEQ/L (98-107); CREATININE FOR GFR 0.72 MG/DL (0.70-1.30); GLOMERULAR FILTRATION RATE > 60.0 (>42); GLUCOSE, FASTING 106 MG/DL (70-100); POTASSIUM SERUM 3.7 MEQ/L (3.5-5.1); SODIUM LEVEL 139 MEQ/L (136-145)
[2021-06-05] MEDS: METOPROLOL TART 50 MG TAB PO SCH ×2 (09:08→20:32)
[2021-06-05 14:00] VITALS: BP 111/66
[2021-06-05] MEDS ORDERED: ISOVUE-370 76% 100ML VIAL As Ordered ONE (14:23)
[2021-06-05] MEDS: NORCO, ANEXSIA 5/325MG TABLET (HYDROcodone/ACETAMINOPHEN) PO PRN (20:33)
[2021-06-05] MEDS ORDERED: APIXABAN 5 MG TAB (ELIQUIS) PO SCH (21:00)
[2021-06-05 22:00] VITALS: BP 109/78
[2021-06-06 06:00] VITALS: BP 103/63
[2021-06-06 07:02] LABS: BASO % 0.5 % (0.0-1.0); EOS # 0.1 10^3/uL (0.0-0.5); EOS % 1.8 % (0.0-3.0); HEMATOCRIT 30.8 % (42.0-52.0); HEMOGLOBIN 10.4 g/dl (13.5-17.5); LYMPH # 0.7 10^3/uL (1.5-5.0); LYMPH % 11.4 % (24.0-44.0); MEAN CORPUSCULAR HEMOGLOBIN 32.6 pg (27.0-33.0); MEAN CORPUSCULAR HGB CONC 33.8 g/dl (32.0-36.5); MEAN CORPUSCULAR VOLUME 96.6 fl (80.0-96.0); MONO # 0.7 10^3/uL (0.0-0.8); MONO % 11.6 % (2.0-8.0); NEUTROPHILS # 4.4 10^3/uL (1.5-8.5); NEUTROPHILS % 74.2 % (36.0-66.0); PLATELET COUNT, AUTOMATED 229 10^3/uL (150-450); RED BLOOD COUNT 3.19 10^6/uL (4.30-6.10)
[2021-06-06 07:07] LABS: INR 1.08; PROTHROMBIN TIME 14.4 SECONDS (12.7-14.5)
[2021-06-06 07:23] LABS: BLOOD UREA NITROGEN 20 MG/DL (7-18); CALCIUM LEVEL 8.5 MG/DL (8.8-10.2); CARBON DIOXIDE LEVEL 26 MEQ/L (21-32); CHLORIDE LEVEL 107 MEQ/L (98-107); CREATININE FOR GFR 0.72 MG/DL (0.70-1.30); GLOMERULAR FILTRATION RATE > 60.0 (>42); GLUCOSE, FASTING 100 MG/DL (70-100); POTASSIUM SERUM 3.6 MEQ/L (3.5-5.1); SODIUM LEVEL 139 MEQ/L (136-145)
[2021-06-06] MEDS: METOPROLOL TART 50 MG TAB PO SCH ×2 (09:00→20:18)
[2021-06-06 14:00] VITALS: BP 107/77
[2021-06-06] MEDS: WARFARIN SOD 2MG TAB PO SCH (17:22)
[2021-06-06] MEDS: NORCO, ANEXSIA 5/325MG TABLET (HYDROcodone/ACETAMINOPHEN) PO PRN (20:19)
[2021-06-06 22:00] VITALS: BP 134/62
[2021-06-07 06:00] VITALS: BP 125/65
[2021-06-07 07:21] LABS: BASO % 0.4 % (0.0-1.0); EOS # 0.1 10^3/uL (0.0-0.5); EOS % 1.5 % (0.0-3.0); HEMATOCRIT 31.6 % (42.0-52.0); HEMOGLOBIN 10.6 g/dl (13.5-17.5); LYMPH # 0.6 10^3/uL (1.5-5.0); LYMPH % 10.8 % (24.0-44.0); MEAN CORPUSCULAR HEMOGLOBIN 32.4 pg (27.0-33.0); MEAN CORPUSCULAR HGB CONC 33.5 g/dl (32.0-36.5); MEAN CORPUSCULAR VOLUME 96.6 fl (80.0-96.0); MONO # 0.6 10^3/uL (0.0-0.8); MONO % 11.2 % (2.0-8.0); NEUTROPHILS # 4.1 10^3/uL (1.5-8.5); NEUTROPHILS % 75.4 % (36.0-66.0); PLATELET COUNT, AUTOMATED 215 10^3/uL (150-450); RED BLOOD COUNT 3.27 10^6/uL (4.30-6.10); WHITE BLOOD COUNT 5.4 10^3/uL (4.0-10.0)
[2021-06-07 07:28] LABS: INR 1.08; PROTHROMBIN TIME 14.4 SECONDS (12.7-14.5)
[2021-06-07 07:40] LABS: BLOOD UREA NITROGEN 18 MG/DL (7-18); CALCIUM LEVEL 8.8 MG/DL (8.8-10.2); CARBON DIOXIDE LEVEL 27 MEQ/L (21-32); CHLORIDE LEVEL 108 MEQ/L (98-107); CREATININE FOR GFR 0.71 MG/DL (0.70-1.30); GLOMERULAR FILTRATION RATE > 60.0 (>42); GLUCOSE, FASTING 93 MG/DL (70-100); POTASSIUM SERUM 3.6 MEQ/L (3.5-5.1); SODIUM LEVEL 141 MEQ/L (136-145)
[2021-06-07] MEDS: METOPROLOL TART 50 MG TAB PO SCH (08:22)
[2021-06-07] MEDS: NORCO, ANEXSIA 5/325MG TABLET (HYDROcodone/ACETAMINOPHEN) PO PRN (08:23)
[2021-06-07 14:00] VITALS: BP 107/65
[2021-06-07] MEDS: WARFARIN SOD 2MG TAB PO SCH (17:00)
[2021-06-07 22:00] VITALS: BP_SYST 103; BP_SYST 110; BP_DIAS 52; BP_DIAS 62
[2021-06-08 06:00] VITALS: BP 107/69
[2021-06-08] MEDS: METOPROLOL TART 50 MG TAB PO SCH ×2 (08:35→21:00)
[2021-06-08 09:25] LABS: BASO % 0.4 % (0.0-1.0); EOS # 0.1 10^3/uL (0.0-0.5); EOS % 1.2 % (0.0-3.0); HEMATOCRIT 32.1 % (42.0-52.0); HEMOGLOBIN 10.7 g/dl (13.5-17.5); LYMPH # 0.5 10^3/uL (1.5-5.0); LYMPH % 9.4 % (24.0-44.0); MEAN CORPUSCULAR HEMOGLOBIN 32.3 pg (27.0-33.0); MEAN CORPUSCULAR HGB CONC 33.3 g/dl (32.0-36.5); MONO # 0.6 10^3/uL (0.0-0.8); MONO % 12.1 % (2.0-8.0); NEUTROPHILS # 3.9 10^3/uL (1.5-8.5); NEUTROPHILS % 76.3 % (36.0-66.0); PLATELET COUNT, AUTOMATED 244 10^3/uL (150-450); RED BLOOD COUNT 3.31 10^6/uL (4.30-6.10); WHITE BLOOD COUNT 5.1 10^3/uL (4.0-10.0)
[2021-06-08 09:33] LABS: INR 1.22; PROTHROMBIN TIME 15.8 SECONDS (12.7-14.5)
[2021-06-08 09:48] LABS: BLOOD UREA NITROGEN 17 MG/DL (7-18); CALCIUM LEVEL 8.6 MG/DL (8.8-10.2); CARBON DIOXIDE LEVEL 27 MEQ/L (21-32); CHLORIDE LEVEL 108 MEQ/L (98-107); CREATININE FOR GFR 0.78 MG/DL (0.70-1.30); GLOMERULAR FILTRATION RATE > 60.0 (>42); GLUCOSE, FASTING 114 MG/DL (70-100); POTASSIUM SERUM 3.8 MEQ/L (3.5-5.1); SODIUM LEVEL 141 MEQ/L (136-145)
[2021-06-08] MEDS: NORCO, ANEXSIA 5/325MG TABLET (HYDROcodone/ACETAMINOPHEN) PO PRN ×2 (13:47→21:07)
[2021-06-08 14:15] VITALS: BP 116/74
[2021-06-08] MEDS: WARFARIN SOD 2MG TAB PO SCH (17:09)
[2021-06-08 22:00] VITALS: BP 110/72
[2021-06-09 06:00] VITALS: BP 108/60
[2021-06-09 07:08] LABS: BASO % 0.4 % (0.0-1.0); EOS # 0.1 10^3/uL (0.0-0.5); EOS % 2.9 % (0.0-3.0); HEMATOCRIT 31.4 % (42.0-52.0); HEMOGLOBIN 10.7 g/dl (13.5-17.5); LYMPH # 0.7 10^3/uL (1.5-5.0); LYMPH % 14.9 % (24.0-44.0); MEAN CORPUSCULAR HEMOGLOBIN 33.3 pg (27.0-33.0); MEAN CORPUSCULAR HGB CONC 34.1 g/dl (32.0-36.5); MEAN CORPUSCULAR VOLUME 97.8 fl (80.0-96.0); MONO # 0.7 10^3/uL (0.0-0.8); MONO % 15.1 % (2.0-8.0); NEUTROPHILS # 3.2 10^3/uL (1.5-8.5); NEUTROPHILS % 66.1 % (36.0-66.0); PLATELET COUNT, AUTOMATED 223 10^3/uL (150-450); RED BLOOD COUNT 3.21 10^6/uL (4.30-6.10); WHITE BLOOD COUNT 4.8 10^3/uL (4.0-10.0)
[2021-06-09 07:27] LABS: INR 1.29; PROTHROMBIN TIME 16.5 SECONDS (12.7-14.5)
[2021-06-09 07:41] LABS: BLOOD UREA NITROGEN 14 MG/DL (7-18); CARBON DIOXIDE LEVEL 29 MEQ/L (21-32); CHLORIDE LEVEL 108 MEQ/L (98-107); CREATININE FOR GFR 0.82 MG/DL (0.70-1.30); GLOMERULAR FILTRATION RATE > 60.0 (>42); GLUCOSE, FASTING 93 MG/DL (70-100); POTASSIUM SERUM 3.6 MEQ/L (3.5-5.1); SODIUM LEVEL 140 MEQ/L (136-145)
[2021-06-09] MEDS: METOPROLOL TART 50 MG TAB PO SCH ×2 (08:16→20:45)
[2021-06-09 13:57] VITALS: BP 112/73
[2021-06-09] MEDS: WARFARIN SOD 2MG TAB PO SCH (17:08)
[2021-06-10 06:00] VITALS: BP 109/68
[2021-06-10 06:25] LABS: BASO % 0.4 % (0.0-1.0); EOS # 0.1 10^3/uL (0.0-0.5); EOS % 2.5 % (0.0-3.0); HEMATOCRIT 34.4 % (42.0-52.0); LYMPH # 0.7 10^3/uL (1.5-5.0); LYMPH % 14.8 % (24.0-44.0); MEAN CORPUSCULAR HEMOGLOBIN 33.7 pg (27.0-33.0); MEAN CORPUSCULAR VOLUME 105.5 fl (80.0-96.0); MONO # 0.6 10^3/uL (0.0-0.8); MONO % 13.1 % (2.0-8.0); NEUTROPHILS # 3.3 10^3/uL (1.5-8.5); NEUTROPHILS % 68.6 % (36.0-66.0); PLATELET COUNT, AUTOMATED 181 10^3/uL (150-450); RED BLOOD COUNT 3.26 10^6/uL (4.30-6.10); WHITE BLOOD COUNT 4.7 10^3/uL (4.0-10.0)
[2021-06-10 06:52] LABS: BLOOD UREA NITROGEN 12 MG/DL (7-18); CALCIUM LEVEL 8.6 MG/DL (8.8-10.2); CARBON DIOXIDE LEVEL 25 MEQ/L (21-32); CHLORIDE LEVEL 108 MEQ/L (98-107); CREATININE FOR GFR 0.74 MG/DL (0.70-1.30); GLOMERULAR FILTRATION RATE > 60.0 (>42); GLUCOSE, FASTING 93 MG/DL (70-100); MAGNESIUM LEVEL 1.9 MG/DL (1.8-2.4); POTASSIUM SERUM 4.1 MEQ/L (3.5-5.1); SODIUM LEVEL 139 MEQ/L (136-145)
[2021-06-10 08:06] VITALS: BP 110/78
[2021-06-10] MEDS: METOPROLOL TART 50 MG TAB PO SCH (08:06)
[2021-06-10] MEDS ORDERED: ACET650T61 PO (12:40)
[2021-06-10 14:00] VITALS: BP 109/78
== END 2021-06-10 15:29 | disposition home health service (06) | DRG 813 ==
LOC: M ED 23:13 → M ED INP 06-02 07:16 → M MS5PR 06-02 14:05 → M ED INP 06-02 14:09 → ENRESERV 06-02 14:25 → M MS5PR 06-02 14:45
PROVIDERS: ADMIT Internal Medicine Nephrology; ATTEND Family Medicine
DX: D68.32 Hemorrhagic disorder due to extrinsic circulating anticoagulants (principal); E43 Unspecified severe protein-calorie malnutrition; I48.91 Unspecified atrial fibrillation; I10 Essential (primary) hypertension; Z96.643 Presence of artificial hip joint, bilateral; Z96.651 Presence of right artificial knee joint; R29.6 Repeated falls; Z79.01 Long term (current) use of anticoagulants; Z79.899 Other long term (current) drug therapy; Z88.0 Allergy status to penicillin; Z88.5 Allergy status to narcotic agent; Z95.0 Presence of cardiac pacemaker; Z95.2 Presence of prosthetic heart valve; M79.81 Nontraumatic hematoma of soft tissue; S32.000S Wedge compression fracture of unspecified lumbar vertebra, sequela; G57.21 Lesion of femoral nerve, right lower limb

== ENCOUNTER → 2021-06-16 | Outpatient (CLI) | payer MEDICARE ==
[~2021-06-16] MED LIST changes: +ACET650T61 PO; +BACTDSTA; +HYDR-3713 PO; +HYDR12CA PO; +METO50TA7 PO; +TIZA2CAP PO
== END ==
LOC: M RAD 11:56
PROVIDERS: ATTEND Orthopaedic Surgery
DX: M25.561 Pain in right knee (principal); Z51.81 Encounter for therapeutic drug level monitoring; Z79.01 Long term (current) use of anticoagulants

== ENCOUNTER → 2021-06-16 | Outpatient (REF) | payer MEDICARE, BC ==
[2021-06-16 13:57] LABS: INR 2.42; PROTHROMBIN TIME 26.7 SECONDS (12.7-14.5)
== END ==
LOC: M SHH 13:32
PROVIDERS: ATTEND Family Medicine
DX: Z51.81 Encounter for therapeutic drug level monitoring (principal); Z79.01 Long term (current) use of anticoagulants

== ENCOUNTER 2022-06-19 00:14 | Observation (INO) | payer MEDICARE, BC ==
[~2022-06-19] VITALS: Ht 180.3 cm; Wt 72.0 kg
[2022-06-19 01:17] LABS: BASO % 0.4 % (0.0-1.0); EOS # 0.1 10^3/uL (0.0-0.5); EOS % 1.3 % (0.0-3.0); HEMATOCRIT 37.3 % (42.0-52.0); HEMOGLOBIN 12.6 g/dl (13.5-17.5); LYMPH # 0.5 10^3/uL (1.5-5.0); LYMPH % 10.2 % (24.0-44.0); MEAN CORPUSCULAR HEMOGLOBIN 32.6 pg (27.0-33.0); MEAN CORPUSCULAR HGB CONC 33.8 g/dl (32.0-36.5); MEAN CORPUSCULAR VOLUME 96.6 fl (80.0-96.0); MONO # 0.6 10^3/uL (0.0-0.8); MONO % 10.7 % (2.0-8.0); NEUTROPHILS # 4.1 10^3/uL (1.5-8.5); NEUTROPHILS % 77.2 % (36.0-66.0); PLATELET COUNT, AUTOMATED 155 10^3/uL (150-450); RED BLOOD COUNT 3.86 10^6/uL (4.30-6.10); WHITE BLOOD COUNT 5.3 10^3/uL (4.0-10.0)
[2022-06-19] MEDS ORDERED: MECLIZINE 25 MG TABLET PO ONE (01:25)
[2022-06-19 01:45] LABS: INR 2.11
[2022-06-19 01:46] LABS: PARTIAL THROMBOPLASTIN TIME 37.4 SECONDS (24.8-34.2)
[2022-06-19 01:56] LABS: ALBUMIN 3.2 G/DL (3.2-5.2); ALKALINE PHOSPHATASE 50 U/L (46-116); ALT/SGPT 13 U/L (7.0-40); AST/SGOT 15 U/L (<34); BILIRUBIN,TOTAL 1.1 MG/DL (0.3-1.2); BLOOD UREA NITROGEN 19 MG/DL (9-23); CALCIUM LEVEL 8.3 MG/DL (8.3-10.6); CARBON DIOXIDE LEVEL 23 MMOL/L (20-31); CHLORIDE LEVEL 108 MMOL/L (98-107); CREATININE FOR GFR 1.01 MG/DL (0.70-1.30); GLOMERULAR FILTRATION RATE > 60.0 (>42); GLUCOSE, FASTING 93 MG/DL (74-106); MAGNESIUM LEVEL 1.6 MG/DL (1.8-2.4); POTASSIUM SERUM 3.9 MMOL/L (3.5-5.1); SODIUM LEVEL 140 MMOL/L (136-145); TOTAL PROTEIN 5.6 G/DL (5.7-8.2)
[2022-06-19] MEDS ORDERED: NS 500 ML IV ONE (02:05)
[2022-06-19] MEDS ORDERED: MAG SULF 1GM/100ML (MAG RUN) 1 GM in IV 1 EA IV ONE (02:05)
[2022-06-19] MEDS ORDERED: ISOVUE-370 76% 100ML VIAL As Ordered ONE (02:44)
[2022-06-19 02:45] VITALS: BP 134/72
[2022-06-19] MEDS ORDERED: hydrALAZINE 20MG/ML 1ML VIAL IV ONE (02:45)
[2022-06-19 03:28] LABS: THYROID STIMULATING HORMONE 1.832 uIU/ML (0.55-4.78)
[2022-06-19] MEDS ORDERED: ASPIRIN 81MG CHEW TABLET PO ONE (05:05)
[2022-06-19] MEDS ORDERED: HOME MED LIST COMPLETE! XX SCH (05:25)
[2022-06-19] MEDS ORDERED: ATOR1TAB19 PO (05:25)
[2022-06-19] MEDS ORDERED: METO1TAB32 PO (05:25)
[2022-06-19] MEDS ORDERED: MECLIZINE 25 MG TABLET PO PRN (06:50)
[2022-06-19 09:26] LABS: CHOLESTEROL RISK RATIO 2.66 (<5); HDL CHOLESTEROL 46.1 MG/DL (>40); LDL CHOLESTEROL 65.9 MG/DL (<100)
[2022-06-19 09:35] LABS: HEMOGLOBIN A1c 4.9 % (4.0-6.0)
[2022-06-19] MEDS ORDERED: MECL-86 PO (10:52)
[2022-06-19 12:30] VITALS: BP 135/74
[2022-06-19] MEDS ORDERED: WARFARIN SOD 2MG TAB PO SCH (18:00)
[2022-06-19] MEDS ORDERED: METOPROLOL SUCC *XL* 25MG TAB (TopROL *XL*) PO SCH (21:00)
[2022-06-19] MEDS ORDERED: ATORVASTATIN 10 MG TAB PO SCH (21:00)
[2022-06-20] MEDS ORDERED: WARFARIN SOD 2MG TAB PO SCH (18:00)
== END 2022-06-19 12:58 | disposition home or self-care (01) ==
LOC: M ED 00:14 → EDBD 00:14 → M ED INP 00:15 → ENRESERV 08:41
PROVIDERS: ADMIT Internal Medicine; ATTEND Internal Medicine
DX: H81.10 Benign paroxysmal vertigo, unspecified ear (principal); I48.91 Unspecified atrial fibrillation; Z95.0 Presence of cardiac pacemaker; Z79.01 Long term (current) use of anticoagulants; Z88.0 Allergy status to penicillin; Z88.5 Allergy status to narcotic agent; Z79.899 Other long term (current) drug therapy
CPT/HCPCS: 36415; 70450; 70496; 70498; 71045; 80053; 80061; 83036; 83735; 83880; 84443; 84484; 85025; 85610; 85730; 87486; 87581; 87633; 87798; 93005; 97161; 99285; G0378; J3475; Q9967

== ENCOUNTER → 2023-07-16 | Outpatient (REF) | payer MEDICARE, BC ==
[~2023-07-16] MED LIST changes: +ATOR1TAB19 PO; +MECL-86 PO; +METO1TAB32 PO
[2023-07-16 17:14] LABS: APPEARANCE, URINE CLEAR (CLEAR); BACTERIA, URINE AUTO NEGATIVE (NEGATIVE); BILIRUBIN, URINE AUTO NEGATIVE (NEGATIVE); BLOOD, URINE BLOOD 2+ (NEGATIVE); COLOR, URINE YELLOW (YELLOW); GLUCOSE, URINE (UA) AUTO NEGATIVE (NEGATIVE); KETONE, URINE AUTO NEGATIVE (NEGATIVE); LEUKOCYTE ESTERASE, URINE AUTO NEGATIVE (NEGATIVE); MUCUS, URINE SMALL (NEGATIVE); NITRITE, URINE AUTO NEGATIVE (NEGATIVE); PROTEIN, URINE AUTO NEGATIVE (NEGATIVE); RBC, URINE AUTO 4 /HPF (0-3); SPECIFIC GRAVITY URINE AUTO 1.018 (1.002-1.035); SQUAMOUS EPITHELIAL CELL UR AU 1 /HPF (0-6); UROBILINOGEN, URINE AUTO 0.2 mg/dL (0.0-2.0); WBC, URINE AUTO 0 /HPF (0-3)
== END ==
LOC: M SMT 16:42
PROVIDERS: ATTEND Nurse Practitioner Family
DX: R31.0 Gross hematuria (principal)

== ENCOUNTER → 2023-07-26 | Outpatient (CLI) | payer MEDICARE ==
[2023-07-26 15:04] LABS: HEMATOCRIT 45.1 % (42.0-52.0); HEMOGLOBIN 15.5 g/dl (13.5-17.5); MEAN CORPUSCULAR HEMOGLOBIN 33.7 pg (27.0-33.0); MEAN CORPUSCULAR HGB CONC 34.4 g/dl (32.0-36.5); PLATELET COUNT, AUTOMATED 172 10^3/uL (150-450); WHITE BLOOD COUNT 5.5 10^3/uL (4.0-10.0)
[2023-07-26 15:40] LABS: BLOOD UREA NITROGEN 19 MG/DL (9-23); CALCIUM LEVEL 8.8 MG/DL (8.3-10.6); CARBON DIOXIDE LEVEL 29 MMOL/L (20-31); CHLORIDE LEVEL 105 MMOL/L (98-107); CREATININE FOR GFR 1.12 MG/DL (0.70-1.30); GLOMERULAR FILTRATION RATE > 60.0 (>42); GLUCOSE, FASTING 96 MG/DL (74-106); POTASSIUM SERUM 5.1 MMOL/L (3.5-5.1); SODIUM LEVEL 139 MMOL/L (136-145)
== END ==
LOC: M RAD 14:35
PROVIDERS: ATTEND Nurse Practitioner Family
DX: R31.0 Gross hematuria (principal); I48.0 Paroxysmal atrial fibrillation; N20.0 Calculus of kidney; Z96.643 Presence of artificial hip joint, bilateral; I70.0 Atherosclerosis of aorta

== ENCOUNTER → 2023-08-06 | Outpatient (CLI) | payer MEDICARE, BC ==
[2023-08-06 15:36] LABS: HEMATOCRIT 43.1 % (42.0-52.0); HEMOGLOBIN 14.5 g/dl (13.5-17.5); MEAN CORPUSCULAR HEMOGLOBIN 33.2 pg (27.0-33.0); MEAN CORPUSCULAR HGB CONC 33.6 g/dl (32.0-36.5); MEAN CORPUSCULAR VOLUME 98.6 fl (80.0-96.0); PLATELET COUNT, AUTOMATED 180 10^3/uL (150-450); RED BLOOD COUNT 4.37 10^6/uL (4.30-6.10); WHITE BLOOD COUNT 6.3 10^3/uL (4.0-10.0)
[2023-08-06 16:07] LABS: BLOOD UREA NITROGEN 25 MG/DL (9-23); CALCIUM LEVEL 9.2 MG/DL (8.3-10.6); CARBON DIOXIDE LEVEL 29 MMOL/L (20-31); CHLORIDE LEVEL 106 MMOL/L (98-107); GLOMERULAR FILTRATION RATE > 60.0 (>42); GLUCOSE, FASTING 92 MG/DL (74-106); POTASSIUM SERUM 4.6 MMOL/L (3.5-5.1); SODIUM LEVEL 138 MMOL/L (136-145)
== END ==
LOC: M PLALAB 14:03
PROVIDERS: ATTEND Physician Assistant
DX: I48.0 Paroxysmal atrial fibrillation (principal)

== ENCOUNTER → 2023-08-10 | Outpatient (CLI) | payer MEDICARE, BC ==
[~2023-08-10] MED LIST changes: +ISOVUE-370 76% 100ML VIAL ONE
== END ==
LOC: M PLAIMG 09:29
PROVIDERS: ATTEND Physician Assistant
DX: Z98.890 Other specified postprocedural states (principal); Z86.79 Personal history of other diseases of the circulatory system; I25.84 Coronary atherosclerosis due to calcified coronary lesion; R91.1 Solitary pulmonary nodule; J92.9 Pleural plaque without asbestos; M41.34 Thoracogenic scoliosis, thoracic region; D73.89 Other diseases of spleen
CPT/HCPCS: 71260; Q9967

== ENCOUNTER 2024-03-30 07:39 | Day surgery (SDC) | payer MEDICARE, BC ==
[~2024-03-30] VITALS: Ht 179.1 cm; Wt 72.6 kg
[~2024-03-30 07:39] MED LIST changes: -ISOVUE-370 76% 100ML VIAL ONE; +MAGN400T2 PO; +NS 250 ML IV ONE
[2024-03-30 09:33] VITALS: TEMP 97.3
[2024-03-30 10:00] VITALS: BP 106/69; O2SAT 95
== END 2024-03-30 10:05 | disposition home or self-care (01) ==
LOC: M OPP 07:39
PROVIDERS: ATTEND Surgery
DX: Z12.11 Encounter for screening for malignant neoplasm of colon (principal); D12.7 Benign neoplasm of rectosigmoid junction; K58.9 Irritable bowel syndrome, unspecified; Z86.0100 Personal history of colon polyps, unspecified; Z87.19 Personal history of other diseases of the digestive system; I48.91 Unspecified atrial fibrillation; I10 Essential (primary) hypertension; E78.00 Pure hypercholesterolemia, unspecified; Z79.01 Long term (current) use of anticoagulants; Z79.899 Other long term (current) drug therapy; Z95.0 Presence of cardiac pacemaker; Z86.718 Personal history of other venous thrombosis and embolism; Z95.2 Presence of prosthetic heart valve; Z88.5 Allergy status to narcotic agent; Z88.0 Allergy status to penicillin

== ENCOUNTER 2025-01-01 13:32 | Emergency (ER) | payer MEDICARE, BC ==
[~2025-01-01] VITALS: Ht 177.8 cm; Wt 71.4 kg
[~2025-01-01 13:32] MED LIST changes: +HYDR12.510 PO; -HYDR12CA PO; -NS 250 ML IV ONE
[2025-01-01 14:08] LABS: BASO # 0.0 10^3/uL (0.0-0.2); BASO % 0.5 % (0.0-1.0); EOS # 0.1 10^3/uL (0.0-0.5); EOS % 1.8 % (0.0-3.0); LYMPH # 0.9 10^3/uL (1.5-5.0); LYMPH % 14.2 % (24.0-44.0); MONO # 0.7 10^3/uL (0.0-0.8); MONO % 11.5 % (2.0-8.0); NEUTROPHILS # 4.4 10^3/uL (1.5-8.5); NEUTROPHILS % 71.7 % (36.0-66.0); PLATELET COUNT, AUTOMATED 168 10^3/uL (150-450)
[2025-01-01 14:19] LABS: INR 2.81
[2025-01-01 14:40] LABS: CALCIUM LEVEL 8.6 MG/DL (8.3-10.6); CARBON DIOXIDE LEVEL 28.0 MMOL/L (20-31); CHLORIDE LEVEL 109.0 MMOL/L (98-107); CREATININE FOR GFR 1.08 MG/DL (0.70-1.30); GLOMERULAR FILTRATION RATE 71.6 (>42); POTASSIUM SERUM 4.6 MMOL/L (3.5-5.1); SODIUM LEVEL 145.0 MMOL/L (136-145)
[2025-01-01 19:44] LABS: BASO # 0.0 10^3/uL (0.0-0.2); BASO % 0.4 % (0.0-1.0); EOS # 0.1 10^3/uL (0.0-0.5); EOS % 1.3 % (0.0-3.0); LYMPH # 0.8 10^3/uL (1.5-5.0); LYMPH % 15.6 % (24.0-44.0); MONO # 0.5 10^3/uL (0.0-0.8); MONO % 9.4 % (2.0-8.0); NEUTROPHILS # 3.9 10^3/uL (1.5-8.5); NEUTROPHILS % 73.1 % (36.0-66.0); PLATELET COUNT, AUTOMATED 153 10^3/uL (150-450)
[2025-01-01 20:22] VITALS: BP 115/77; TEMP 97.4; O2SAT 95
== END 2025-01-01 20:25 | disposition home or self-care (01) ==
LOC: M ED 13:32
DX: K92.2 Gastrointestinal hemorrhage, unspecified (principal); I48.91 Unspecified atrial fibrillation; I10 Essential (primary) hypertension; Z95.0 Presence of cardiac pacemaker; Z86.718 Personal history of other venous thrombosis and embolism; F17.220 Nicotine dependence, chewing tobacco, uncomplicated; Z79.01 Long term (current) use of anticoagulants; Z79.899 Other long term (current) drug therapy; Z88.0 Allergy status to penicillin; Z88.5 Allergy status to narcotic agent

== ENCOUNTER 2025-01-02 00:33 | Emergency (ER) | payer MEDICARE, BC ==
[~2025-01-02] VITALS: Ht 177.8 cm; Wt 72.7 kg
[2025-01-02 00:57] LABS: BASO # 0.0 10^3/uL (0.0-0.2); BASO % 0.3 % (0.0-1.0); EOS # 0.1 10^3/uL (0.0-0.5); EOS % 0.8 % (0.0-3.0); LYMPH # 0.7 10^3/uL (1.5-5.0); LYMPH % 9.3 % (24.0-44.0); MONO # 0.8 10^3/uL (0.0-0.8); MONO % 10.1 % (2.0-8.0); NEUTROPHILS # 6.3 10^3/uL (1.5-8.5); NEUTROPHILS % 79.1 % (36.0-66.0); PLATELET COUNT, AUTOMATED 168 10^3/uL (150-450)
[2025-01-02 02:38] LABS: ALT/SGPT 14.0 U/L (7.0-40); AST/SGOT 24.0 U/L (<34); CALCIUM LEVEL 7.1 MG/DL (8.3-10.6); CARBON DIOXIDE LEVEL 23.0 MMOL/L (20-31); CHLORIDE LEVEL 111.0 MMOL/L (98-107); CREATININE FOR GFR 1.03 MG/DL (0.70-1.30); GLOMERULAR FILTRATION RATE 75.8 (>42); POTASSIUM SERUM 4.4 MMOL/L (3.5-5.1); SODIUM LEVEL 146.0 MMOL/L (136-145)
[2025-01-02 07:15] VITALS: BP 114/84; TEMP 97.6; O2SAT 96
== END 2025-01-02 07:34 | disposition home or self-care (01) ==
LOC: M ED 00:33
DX: K64.9 Unspecified hemorrhoids (principal); I48.91 Unspecified atrial fibrillation; I10 Essential (primary) hypertension; Z86.718 Personal history of other venous thrombosis and embolism; Z79.01 Long term (current) use of anticoagulants; Z79.899 Other long term (current) drug therapy; Z88.0 Allergy status to penicillin; Z88.5 Allergy status to narcotic agent